=== PATIENT | female | born 1940 | race Caucasian/White ===

== ENCOUNTER 2017-12-26 01:39 | Inpatient (IN) | payer MEDICARE ==
[2017-12-26] VITALS (29 sets, daily range): BP systolic 81–139
[~2017-12-26] VITALS: Ht 157.5 cm; Wt 68.0 kg
[~2017-12-26 01:39] MED LIST: GUAI118S20 PO; METH5TAB70 PO
[2017-12-26] MEDS ORDERED: PIPERACILLIN/TAZO 3.375 GM in NS 50 ML IV ONE (01:45)
[2017-12-26] MEDS ORDERED: NACL 0.9% 1,000 ML IV ONE ×2 (01:45→03:30)
[2017-12-26] MEDS ORDERED: methylPREDNISolone SOD SUCC/PF 62.5 MG/ML VIAL IVP ONE (01:45)
[2017-12-26] MEDS ORDERED: ACETAMINOPHEN 325 MG TABLET PO ONE (02:00)
[2017-12-26] MEDS ORDERED: PIPERACILLIN/TAZOBACTAM 3.375 GM/VIAL (ZOSYN) IV ONE (02:15)
[2017-12-26] MEDS ORDERED: VANCOMYCIN HCL 1,000 MG in NS 250 ML IV ONE (02:30)
[2017-12-26 02:42] LABS: HEMATOCRIT 23.5 % (36-48); HEMOGLOBIN 7.9 g/dL (12.0-16.0); MEAN CORPUSCULAR HEMOGLOBIN 30 pg (27-31); MEAN CORPUSCULAR HGB CONC 34 % (32-36); MEAN CORPUSCULAR VOLUME 88 fL (79.0-98.0); PLATELET COUNT (AUTO) 207 K/uL (130-430); RED BLOOD CELL COUNT(AUTO) 2.66 MIL/uL (4.2-6.2); RED CELL DISTRIBUTION WIDTH 18.7 % (9.0-15.0); WHITE BLOOD COUNT (AUTO) 4.7 K/uL (4.8-10.8)
[2017-12-26] MEDS ORDERED: IPRATROPIUM/ALBUTEROL SULFATE 3 ML AMPUL.NEB INH ONE (02:45)
[2017-12-26 02:48] LABS: INR 1.2 (0.8-1.2); PROTHROMBIN TIME 12.1 SECS (9.5-12.5)
[2017-12-26 02:56] LABS: ANION GAP 11 (5-15); CALCIUM 7.9 mg/dL (8.4-11.0); CHLORIDE 97 mmol/L (98-107); CREATININE 1.32 mg/dL (0.55-1.30); GLUCOSE 237 mg/dL (70-99); POTASSIUM 4.5 mmol/L (3.5-5.1); SODIUM SERUM 128 mmol/L (136-145); UREA NITROGEN, BLOOD 29 mg/dL (8-21)
[2017-12-26 02:58] LABS: BILIRUBIN,URINE NEGATIVE (NEGATIVE); BLOOD, URINE NEGATIVE (NEGATIVE); CLARITY/URINE CLEAR (CLEAR); COLOR,URINE YELLOW (YELLOW); GLUCOSE,URINE NEGATIVE (NEGATIVE); KETONES,URINE NEGATIVE (NEGATIVE); LEUKOCYTE ESTERASE ,URINE NEGATIVE (NEGATIVE); NITRITE, URINE NEGATIVE (NEGATIVE); PH,URINE 5.5 (5.0-8.0); PROTEIN URINE NEGATIVE (NEGATIVE); UROBILINOGEN,URINE 0.2 (0.2-1.0)
[2017-12-26 03:00] LABS: ALANINE AMINOTRANSFERASE 22 U/L (12-78); ALBUMIN 2.2 g/dL (3.4-4.8); ASPARTATE AMINOTRANSFERASE 24 U/L (10-37); TOTAL BILIRUBIN 0.5 mg/dL (0.0-1.0)
[2017-12-26] MEDS ORDERED: OMEP20CA10 PO (03:21)
[2017-12-26] MEDS ORDERED: HYD10 PO ×2 (03:23→03:24)
[2017-12-26] MEDS ORDERED: SULF1TAB48 PO (03:26)
[2017-12-26] MEDS ORDERED: CEPH-568 PO (03:27)
[2017-12-26] MEDS ORDERED: PROPOFOL DRIP 100 ML IV ONE (03:30)
[2017-12-26] MEDS ORDERED: CHLO2TAB PO (03:31)
[2017-12-26] MEDS ORDERED: FURO-150 PO (03:33)
[2017-12-26] MEDS ORDERED: POTA10TA PO (03:34)
[2017-12-26 03:35] LABS: BASOPHILS % (MANUAL) 0 % (0-2); EOSINOPHILS % (MANUAL) 0 % (0-7); LYMPHOCYTES % (MANUAL) 98 % (20-46); MONOCYTES % (MANUAL) 2 % (0-11)
[2017-12-26] MEDS ORDERED: ALBU2.5V7 INH (03:35)
[2017-12-26] MEDS ORDERED: CLOP75TA32 PO (03:36)
[2017-12-26] MEDS ORDERED: ATOR10TA68 PO (03:36)
[2017-12-26] MEDS ORDERED: ASCO500T20 PO (03:40)
[2017-12-26] MEDS ORDERED: VANCOMYCIN HCL 1000 MG/VIAL IV ONE (03:41)
[2017-12-26] MEDS ORDERED: MULT-1089 PO (03:43)
[2017-12-26] MEDS ORDERED: FERR-69 PO (03:44)
[2017-12-26] MEDS: FAMOTIDINE PF 20 MG/2 ML VIAL IVP SCH ×2 (04:30→05:58)
[2017-12-26] MEDS ORDERED: FAMOTIDINE PF 20 MG/2 ML VIAL ONE (05:46)
[2017-12-26] MEDS: NACL 0.9% 1,000 ML IV SCH ×2 (05:56→16:34)
[2017-12-26] MEDS ORDERED: NOREPINEPHRINE BITARTRATE 4 MG in D5W 246 ML IV PRN (06:00)
[2017-12-26] MEDS ORDERED: ACETAMINOPHEN 650 MG SUPP.RECT RC PRN (08:30)
[2017-12-26] MEDS ORDERED: ALBUTEROL SULFATE 0.083% 2.5 MG/3 ML VIAL.NEB INH PRN (09:30)
[2017-12-26] MEDS ORDERED: IPRATROPIUM BROM 0.5 MG/2.5 ML VIAL.NEB (ATROVENT) INH PRN (09:30)
[2017-12-26] MEDS ORDERED: PIPERACILLIN/TAZO 2.25G/DEX-IS 50 ML IV SCH (09:30)
[2017-12-26 09:37] LABS: EOSINOPHILS % (AUTO) 0.1 % (0.0-4.0); LYMPHOCYTES # (AUTO) 0.7 K/uL (1.0-5.5); MEAN CORPUSCULAR HEMOGLOBIN 30 pg (27-31); MEAN CORPUSCULAR HGB CONC 34 % (32-36); MEAN CORPUSCULAR VOLUME 88 fL (79.0-98.0); MONOCYTES # (AUTO) 0.1 K/uL (0.0-1.0); MONOCYTES % (AUTO) 8.5 % (1.7-9.3); NEUTROPHILS % (AUTO) 2.5 % (40.0-70.0); PLATELET COUNT (AUTO) 109 K/uL (130-430); RED BLOOD CELL COUNT(AUTO) 2.32 MIL/uL (4.2-6.2); RED CELL DISTRIBUTION WIDTH 18.6 % (9.0-15.0)
[2017-12-26 09:45] LABS: ANION GAP 9 (5-15); CHLORIDE 100 mmol/L (98-107); POTASSIUM 4.1 mmol/L (3.5-5.1); SODIUM SERUM 129 mmol/L (136-145)
[2017-12-26] MEDS ORDERED: ENOXAPARIN SODIUM 60 MG/0.6 ML SYRINGE SUBCUT ONE (09:45)
[2017-12-26] MEDS ORDERED: HYDROCORTISONE SOD SUCC 100 MG/2 ML VIAL IVP ONE (09:45)
[2017-12-26 09:46] LABS: CALCIUM 7.7 mg/dL (8.4-11.0); CREATININE 1.29 mg/dL (0.55-1.30); GLUCOSE 313 mg/dL (70-99); UREA NITROGEN, BLOOD 31 mg/dL (8-21)
[2017-12-26 10:07] LABS: TOTAL BILIRUBIN 0.5 mg/dL (0.0-1.0)
[2017-12-26 10:08] LABS: ALANINE AMINOTRANSFERASE 39 U/L (12-78); ALBUMIN 1.9 g/dL (3.4-4.8); ASPARTATE AMINOTRANSFERASE 91 U/L (10-37); LACTATE DEHYDROGENASE 246 U/L (81-234); THYROID STIMULATING HORMONE 1.46 uIu/mL (0.34-4.82)
[2017-12-26 10:12] LABS: HEMATOCRIT 20.3 % (36-48); HEMOGLOBIN 6.9 g/dL (12.0-16.0); WHITE BLOOD COUNT (AUTO) 0.8 K/uL (4.8-10.8)
[2017-12-26 10:59] LABS: LYMPHOCYTES % (AUTO) 88.9 % (20.5-51.5)
[2017-12-26] MEDS: LEVOFLOXACIN 250 MG/D5W 50 ML IV SCH (11:59)
[2017-12-26] MEDS: INSULIN ASPART 100 UNITS/ML, 10 ML VIAL (NovoLOG) SUBCUT PRN ×2 (12:18→18:23)
[2017-12-26] MEDS: ALBUTEROL SULFATE 0.083% 2.5 MG/3 ML VIAL.NEB INH SCH ×2 (13:08→19:52)
[2017-12-26] MEDS: IPRATROPIUM BROM 0.5 MG/2.5 ML VIAL.NEB (ATROVENT) INH SCH ×2 (13:09→19:52)
[2017-12-26] MEDS ORDERED: methylPREDNISolone SOD SUCC/PF 62.5 MG/ML VIAL IVP SCH (14:00)
[2017-12-26] MEDS: HYDROCORTISONE SOD SUCC 100 MG/2 ML VIAL IVP SCH ×2 (14:40→21:19)
[2017-12-26] MEDS: PROPOFOL DRIP 100 ML IV PRN (15:23)
[2017-12-26] MEDS: MEROPENEM 500 MG in NS 50 ML IV SCH ×2 (15:23→21:20)
[2017-12-26] MEDS ORDERED: ONDANSETRON HCL 4 MG/2 ML VIAL IVP PRN (16:15)
[2017-12-26] MEDS ORDERED: MORPHINE 2 MG/ML INJ. SYRINGE IVP PRN ×2 (16:15)
[2017-12-26] MEDS: FILGRASTIM 480 MCG/VIAL SUBCUT SCH (16:35)
[2017-12-26] MEDS: CARVEDILOL 3.125 MG TABLET (COREG) PO SCH (21:00)
[2017-12-26] MEDS: FUROSEMIDE 40 MG/4 ML VIAL IVP SCH (21:17)
[2017-12-26] MEDS: ENOXAPARIN SODIUM 60 MG/0.6 ML SYRINGE SUBCUT SCH (21:18)
[2017-12-27] VITALS (30 sets, daily range): BP systolic 93–127
[2017-12-27] MEDS: INSULIN ASPART 100 UNITS/ML, 10 ML VIAL (NovoLOG) SUBCUT PRN ×5 (00:06→23:13)
[2017-12-27] MEDS: ALBUTEROL SULFATE 0.083% 2.5 MG/3 ML VIAL.NEB INH SCH ×4 (01:11→19:52)
[2017-12-27] MEDS: IPRATROPIUM BROM 0.5 MG/2.5 ML VIAL.NEB (ATROVENT) INH SCH ×4 (01:12→19:52)
[2017-12-27] MEDS: PROPOFOL DRIP 100 ML IV PRN (03:35)
[2017-12-27] MEDS: NACL 0.9% 1,000 ML IV SCH ×2 (06:06→17:32)
[2017-12-27] MEDS: MEROPENEM 500 MG in NS 50 ML IV SCH ×3 (06:07→21:57)
[2017-12-27] MEDS: HYDROCORTISONE SOD SUCC 100 MG/2 ML VIAL IVP SCH ×3 (06:07→21:57)
[2017-12-27 06:41] LABS: BASOPHILS % (AUTO) 0.1 % (0.0-2.0); LYMPHOCYTES # (AUTO) 1.8 K/uL (1.0-5.5); LYMPHOCYTES % (AUTO) 92.8 % (20.5-51.5); MEAN CORPUSCULAR HEMOGLOBIN 29 pg (27-31); MEAN CORPUSCULAR HGB CONC 33 % (32-36); MEAN CORPUSCULAR VOLUME 87 fL (79.0-98.0); MONOCYTES # (AUTO) 0.1 K/uL (0.0-1.0); MONOCYTES % (AUTO) 6.3 % (1.7-9.3); NEUTROPHILS % (AUTO) 0.8 % (40.0-70.0); PLATELET COUNT (AUTO) 146 K/uL (130-430); RED BLOOD CELL COUNT(AUTO) 3.13 MIL/uL (4.2-6.2); RED CELL DISTRIBUTION WIDTH 17.3 % (9.0-15.0)
[2017-12-27 06:56] LABS: ALANINE AMINOTRANSFERASE 36 U/L (12-78); ALBUMIN 1.9 g/dL (3.4-4.8); ANION GAP 9 (5-15); ASPARTATE AMINOTRANSFERASE 66 U/L (10-37); CHLORIDE 106 mmol/L (98-107); CHOLESTEROL 88 mg/dL (<200); GLUCOSE 178 mg/dL (70-99); HDL CHOLESTEROL 15 mg/dL (>55); LDL CHOLESTEROL 53 mg/dL (<100); LIPASE 82 U/L (73-393); POTASSIUM 3.4 mmol/L (3.5-5.1); SODIUM SERUM 136 mmol/L (136-145); TOTAL BILIRUBIN 0.4 mg/dL (0.0-1.0); TRIGLYCERIDES 62 mg/dL (30-150); UREA NITROGEN, BLOOD 27 mg/dL (8-21)
[2017-12-27 07:11] LABS: WHITE BLOOD COUNT (AUTO) 1.9 K/uL (4.8-10.8)
[2017-12-27] MEDS ORDERED: KCL 20 mEq in 100 mL (PREMIX) 100 ML IV ONE (08:45)
[2017-12-27] MEDS: FAMOTIDINE PF 20 MG/2 ML VIAL IVP SCH (08:51)
[2017-12-27] MEDS: CARVEDILOL 3.125 MG TABLET (COREG) PO SCH ×2 (08:52→21:57)
[2017-12-27] MEDS: FUROSEMIDE 40 MG/4 ML VIAL IVP SCH ×2 (08:52→20:15)
[2017-12-27] MEDS: ENOXAPARIN SODIUM 60 MG/0.6 ML SYRINGE SUBCUT SCH ×2 (08:54→20:17)
[2017-12-27] MEDS ORDERED: LORazepam 2 MG/ML VIAL IVP PRN (09:00)
[2017-12-27] MEDS: LEVOFLOXACIN 250 MG/D5W 50 ML IV SCH (11:59)
[2017-12-27] MEDS: FILGRASTIM 480 MCG/VIAL SUBCUT SCH (17:15)
[2017-12-27] MEDS ORDERED: PANTOPRAZOLE SODIUM 40 MG/VIAL (PROTONIX) IVP SCH (19:30)
[2017-12-28] VITALS (18 sets, daily range): BP systolic 101–144
[2017-12-28] MEDS: IPRATROPIUM BROM 0.5 MG/2.5 ML VIAL.NEB (ATROVENT) INH SCH ×3 (00:39→14:29)
[2017-12-28] MEDS: ALBUTEROL SULFATE 0.083% 2.5 MG/3 ML VIAL.NEB INH SCH ×3 (00:39→14:28)
[2017-12-28] MEDS: MEROPENEM 500 MG in NS 50 ML IV SCH ×2 (05:42→15:04)
[2017-12-28] MEDS: HYDROCORTISONE SOD SUCC 100 MG/2 ML VIAL IVP SCH ×2 (05:42→15:04)
[2017-12-28] MEDS: NACL 0.9% 1,000 ML IV SCH (05:58)
[2017-12-28 06:23] LABS: EOSINOPHILS % (AUTO) 1.6 % (0.0-4.0); LYMPHOCYTES # (AUTO) 0.7 K/uL (1.0-5.5); LYMPHOCYTES % (AUTO) 88.6 % (20.5-51.5); MEAN CORPUSCULAR HEMOGLOBIN 30 pg (27-31); MEAN CORPUSCULAR HGB CONC 34 % (32-36); MEAN CORPUSCULAR VOLUME 87 fL (79.0-98.0); MONOCYTES % (AUTO) 5.8 % (1.7-9.3); PLATELET COUNT (AUTO) 86 K/uL (130-430); RED BLOOD CELL COUNT(AUTO) 2.38 MIL/uL (4.2-6.2); RED CELL DISTRIBUTION WIDTH 17.3 % (9.0-15.0)
[2017-12-28 06:53] LABS: ANION GAP 9 (5-15); CALCIUM 7.9 mg/dL (8.4-11.0); CHLORIDE 111 mmol/L (98-107); GLUCOSE 155 mg/dL (70-99); SODIUM SERUM 143 mmol/L (136-145); UREA NITROGEN, BLOOD 27 mg/dL (8-21)
[2017-12-28 07:08] LABS: ALANINE AMINOTRANSFERASE 27 U/L (12-78); ALBUMIN 1.8 g/dL (3.4-4.8); ASPARTATE AMINOTRANSFERASE 34 U/L (10-37); LIPASE 61 U/L (73-393); TOTAL BILIRUBIN 0.3 mg/dL (0.0-1.0)
[2017-12-28 07:14] LABS: POTASSIUM 2.7 mmol/L (3.5-5.1)
[2017-12-28 07:23] LABS: HEMATOCRIT 20.6 % (36-48); WHITE BLOOD COUNT (AUTO) 0.7 K/uL (4.8-10.8)
[2017-12-28] MEDS ORDERED: POTASSIUM CHLORIDE 40 MEQ, LIDOCAINE JECT 2% PF 100 MG 50 MG in NS 250 ML IV ONE ×2 (08:45→13:00)
[2017-12-28] MEDS ORDERED: SULFAMETHOXAZOLE/TRIMETHOPR DS 1 TABLET PO SCH (09:00)
[2017-12-28] MEDS: CARVEDILOL 3.125 MG TABLET (COREG) PO SCH (09:00)
[2017-12-28] MEDS: FUROSEMIDE 40 MG/4 ML VIAL IVP SCH (09:00)
[2017-12-28] MEDS ORDERED: PANTOPRAZOLE SODIUM 40 MG/VIAL (PROTONIX) IVP SCH (09:00)
[2017-12-28] MEDS: ENOXAPARIN SODIUM 60 MG/0.6 ML SYRINGE SUBCUT SCH (09:11)
[2017-12-28] MEDS ORDERED: FUROSEMIDE 40 MG TABLET PO ONE (09:15)
[2017-12-28] MEDS ORDERED: POTASSIUM CHLORIDE 20 MEQ TAB.PRT.SR PO ONE (09:15)
[2017-12-28] MEDS: LEVOFLOXACIN 250 MG/D5W 50 ML IV SCH (11:09)
[2017-12-28] MEDS: INSULIN ASPART 100 UNITS/ML, 10 ML VIAL (NovoLOG) SUBCUT PRN (12:22)
[2017-12-28] MEDS: FILGRASTIM 480 MCG/VIAL SUBCUT SCH (17:08)
[2017-12-28] MEDS ORDERED: FUROSEMIDE 40 MG TABLET PO SCH (21:00)
[2017-12-28] MEDS ORDERED: CARVEDILOL 3.125 MG TABLET (COREG) PO SCH (21:00)
[2017-12-31 19:12] LABS: MYCOPLASMA PNEUMONIAE IgM <770 U/mL (0-769)
== END 2017-12-28 17:45 | disposition short-term general hospital (02) | DRG 871 ==
LOC: SED 01:39 → SIC 04:07
PROVIDERS: ADMIT Internal Medicine; ATTEND Internal Medicine
PROC: 30233N1 Transfusion of Nonautologous Red Blood Cells into Peripheral Vein, Percutaneous Approach (ICD-10-PCS; principal; 2017-12-26)
PROC: 5A1935Z Respiratory Ventilation, Less than 24 Consecutive Hours (ICD-10-PCS; 2017-12-26)
PROC: 0BH17EZ Insertion of Endotracheal Airway into Trachea, Via Natural or Artificial Opening (ICD-10-PCS; 2017-12-26)
DX: A41.9 Sepsis, unspecified organism (principal); J18.9 Pneumonia, unspecified organism; R65.21 Severe sepsis with septic shock; J96.01 Acute respiratory failure with hypoxia; I21.A1 Myocardial infarction type 2; E43 Unspecified severe protein-calorie malnutrition; C91.10 Chronic lymphocytic leukemia of B-cell type not having achieved remission; D61.818 Other pancytopenia; E27.40 Unspecified adrenocortical insufficiency; E87.1 Hypo-osmolality and hyponatremia; J44.0 Chronic obstructive pulmonary disease with (acute) lower respiratory infection; I50.9 Heart failure, unspecified; E03.9 Hypothyroidism, unspecified; E11.9 Type 2 diabetes mellitus without complications; E78.5 Hyperlipidemia, unspecified; I11.0 Hypertensive heart disease with heart failure; I44.7 Left bundle-branch block, unspecified; E05.90 Thyrotoxicosis, unspecified without thyrotoxic crisis or storm; I48.2 Chronic atrial fibrillation; I95.9 Hypotension, unspecified; I08.0 Rheumatic disorders of both mitral and aortic valves; E87.6 Hypokalemia; M19.90 Unspecified osteoarthritis, unspecified site; Z79.52 Long term (current) use of systemic steroids; Z82.49 Family history of ischemic heart disease and other diseases of the circulatory system; Z83.3 Family history of diabetes mellitus; Z87.440 Personal history of urinary (tract) infections; Z86.73 Personal history of transient ischemic attack (TIA), and cerebral infarction without residual deficits; Z88.1 Allergy status to other antibiotic agents; Z88.8 Allergy status to other drugs, medicaments and biological substances; Z79.899 Other long term (current) drug therapy; Z68.27 Body mass index [BMI] 27.0-27.9, adult
CPT/HCPCS: 36415; 36600; 71045; 76700-TC; 80053; 80061; 81003; 82803-TC; 82962; 83605; 83615-TC; 83690-TC; 83880; 84443-TC; 84484; 85007; 85025; 85027; 85379; 85610-TC; 86635; 86738; 86886; 86900; 86901; 86920; 87040-TC; 87070-TC; 87081; 87205-TC; 87305; 87497; 93005; 93306; 94002; 94003; 94640; 96365; 96367; 96375; 99285; C9113; J1442; J1650; J1720; J1940; J1956; J2185; J2270; J2543; J2704; J2930; J3370; J3480; J3490; J7030; J7050; J7060; J7613; J7620; P9021